=== PATIENT | female | born 1995 | race Caucasian/White ===

== ENCOUNTER 2022-03-30 17:55 | Emergency (ER) | payer MEDICAID, OTHER ==
[~2022-03-30] VITALS: Ht 160 cm; Wt 80.0 kg
[2022-03-30 18:00] VITALS: BP 104/70
[2022-03-30] MEDS ORDERED: IBUP-1986 PO (19:05)
[2022-03-30] MEDS ORDERED: orphenadrine citrate 60mg/2ml inj. IM ONE (19:05)
[2022-03-30] MEDS ORDERED: ketorolac tromethamine 15mg/ml inj. IM ONE (19:05)
[2022-03-30] MEDS ORDERED: CYCL-1 PO (19:05)
== END 2022-03-30 19:27 | disposition home or self-care (01) ==
LOC: ER 17:58
DX: S39.012A Strain of muscle, fascia and tendon of lower back, initial encounter (principal); F12.90 Cannabis use, unspecified, uncomplicated; Z72.89 Other problems related to lifestyle; Z79.899 Other long term (current) drug therapy; X58.XXXA Exposure to other specified factors, initial encounter; Y93.89 Activity, other specified; Y92.89 Other specified places as the place of occurrence of the external cause; Y99.8 Other external cause status
CPT/HCPCS: 96372; 99284; J1885; J2360

== ENCOUNTER 2023-11-05 22:23 | Emergency (ER) | payer MEDICAID ==
[~2023-11-05] VITALS: Ht 160 cm; Wt 83.6 kg
[~2023-11-05 22:23] MED LIST: CYCL-1 PO; IBUP-1986 PO
[2023-11-05] MEDS ORDERED: normal saline 1000ml 1,000 ML IV ONE (23:05)
[2023-11-05 23:49] LABS: BASOPHILS % (AUTO) 0.5 % (0-1); EOSINOPHILS # (AUTO) 0.2 X10'3 (0-0.9); EOSINOPHILS % (AUTO) 2.9 % (0-6); HEMOGLOBIN 13.4 g/dl (12.0-16.0); LYMPHOCYTES # (AUTO) 1.6 X10'3 (1.1-4.8); LYMPHOCYTES % (AUTO) 30.7 % (21-51); MEAN CORPUSCULAR HEMOGLOBIN 30.3 PG (27.0-31.0); MEAN CORPUSCULAR HGB CONC 34.4 g/dL (33.0-36.5); MEAN CORPUSCULAR VOLUME 88.1 FL (78-98); MEAN PLATELET VOLUME 7.7 FL (7.4-10.4); MONOCYTES # (AUTO) 0.4 X10'3 (0-0.9); MONOCYTES % (AUTO) 6.8 % (2-12); NEUTROPHILS # (AUTO) 3.2 X10'3 (1.8-7.7); NEUTROPHILS % (AUTO) 59.1 % (42-75); PLATELET COUNT 256 X10'3 (140-440); RED BLOOD COUNT 4.43 X10'6 (4.20-5.60); RED CELL DISTRIBUTION WIDTH 12.9 % (11.5-14.5); WHITE BLOOD COUNT 5.4 X10'3 (4.5-11.0)
[2023-11-05 23:57] LABS: D-DIMER 0.36 MG/L FEU (0-0.50); PROTHROMBIN TIME 10.6 SECONDS (9.0-12.0)
[2023-11-06 00:06] LABS: ALANINE AMINOTRANSFERASE 15 U/L (12-78); ALBUMIN 3.7 G/DL (3.4-5.0); ALKALINE PHOSPHATASE 78 IU/L (46-116); ANION GAP 5 (8-16); ASPARTATE AMINO TRANSFERASE 16 U/L (10-37); BILIRUBIN,TOTAL 0.4 MG/DL (0.1-1.0); BLOOD UREA NITROGEN 16 MG/DL (7-18); BUN/CREATININE RATIO 18.4 (10.0-20.0); CALCIUM 8.8 MG/DL (8.5-10.1); CHLORIDE 104 MMOL/L (99-107); CREATININE 0.87 MG/DL (0.40-0.90); GLUCOSE 130 MG/DL (70-104); MAGNESIUM 2.2 MG/DL (1.5-2.4); POTASSIUM 4.1 MMOL/L (3.5-5.1); PRO BRAIN NATRIURETIC PEPTIDE 42 PG/ML (0-125); SODIUM 138 MMOL/L (135-145); TOTAL CARBON DIOXIDE 28.8 MMOL/L (24-32); TOTAL PROTEIN 7.5 G/DL (6.4-8.2); eCRCL 78 ML/MIN; eGFR 76 ML/MIN
[2023-11-06 00:28] VITALS: BP 98/47; PULSE 75; RESP 18; TEMP 97.9; O2SAT 98
== END 2023-11-06 00:30 | disposition home or self-care (01) ==
LOC: ER 22:24
DX: B34.9 Viral infection, unspecified (principal); R19.7 Diarrhea, unspecified; F12.90 Cannabis use, unspecified, uncomplicated; E86.0 Dehydration
CPT/HCPCS: 36415; 71045; 80053; 83735; 83880; 84484; 85025; 85379; 85610; 93005; 96360; 99285; J7030

== ENCOUNTER 2023-12-30 22:51 | Emergency (ER) | payer MEDICAID ==
[~2023-12-30] VITALS: Ht 160 cm; Wt 82.9 kg
[2023-12-30 23:14] LABS: BASOPHILS % (AUTO) 0.3 % (0-1); EOSINOPHILS # (AUTO) 0.2 X10'3 (0-0.9); EOSINOPHILS % (AUTO) 2.9 % (0-6); HEMOGLOBIN 13.4 g/dl (12.0-16.0); LYMPHOCYTES # (AUTO) 2.5 X10'3 (1.1-4.8); LYMPHOCYTES % (AUTO) 35.7 % (21-51); MEAN CORPUSCULAR HEMOGLOBIN 29.9 PG (27.0-31.0); MEAN CORPUSCULAR HGB CONC 34.4 g/dL (33.0-36.5); MEAN CORPUSCULAR VOLUME 87.1 FL (78-98); MONOCYTES # (AUTO) 0.4 X10'3 (0-0.9); MONOCYTES % (AUTO) 5.3 % (2-12); NEUTROPHILS # (AUTO) 3.9 X10'3 (1.8-7.7); NEUTROPHILS % (AUTO) 55.8 % (42-75); PLATELET COUNT 230 X10'3 (140-440); RED BLOOD COUNT 4.48 X10'6 (4.20-5.60); RED CELL DISTRIBUTION WIDTH 13.1 % (11.5-14.5)
[2023-12-30 23:26] LABS: ANION GAP 9 (8-16); BLOOD UREA NITROGEN 12 MG/DL (7-18); BUN/CREATININE RATIO 15.8 (10.0-20.0); CALCIUM 8.8 MG/DL (8.5-10.1); CHLORIDE 106 MMOL/L (99-107); CREATININE 0.76 MG/DL (0.40-0.90); GLUCOSE 92 MG/DL (70-104); POTASSIUM 4.1 MMOL/L (3.5-5.1); PRO BRAIN NATRIURETIC PEPTIDE 44 PG/ML (0-125); SODIUM 142 MMOL/L (135-145); TOTAL CARBON DIOXIDE 27.2 MMOL/L (24-32); eCRCL 90 ML/MIN; eGFR 89 ML/MIN
[2023-12-31 00:28] LABS: URINE HCG NEGATIVE (NEG)
[2023-12-31] MEDS ORDERED: iohexol 350MG/ML 100ml bottle IV ONE (00:44)
[2023-12-31 04:59] VITALS: BP 112/71; PULSE 77; RESP 16; TEMP 98.2; O2SAT 97
== END 2023-12-31 05:06 | disposition home or self-care (01) ==
LOC: ER 22:52
DX: R07.9 Chest pain, unspecified (principal); R06.02 Shortness of breath; Z79.899 Other long term (current) drug therapy
CPT/HCPCS: 36415; 71045; 71275; 80048; 81025; 83880; 84484; 85025; 93005; 99285; J3490; Q9967

== ENCOUNTER 2024-03-22 14:52 | Outpatient (CLI) | payer MEDICAID ==
[~2024-03-22] VITALS: Ht 160 cm; Wt 74.8 kg
[2024-03-22] MEDS: albuterol 2.5 MG/3 ML nebule NEB ONE (15:26)
[2024-03-22 15:27] VITALS: PULSE 77; RESP 15; O2SAT 99
== END 2024-03-22 23:59 | disposition home or self-care (01) ==
LOC: RT 14:52
PROVIDERS: ATTEND Student in an Organized Health Care Education/Training Program
DX: R06.02 Shortness of breath (principal)
CPT/HCPCS: 94060; 94760

== ENCOUNTER 2024-09-27 15:49 | Outpatient (CLI) | payer MEDICAID | END 2024-09-27 23:59 | disposition home or self-care (01) | LOC: RAD 15:49 | PROVIDERS: ATTEND Family Medicine | DX: D25.9 Leiomyoma of uterus, unspecified (principal); N83.02 Follicular cyst of left ovary; R10.2 Pelvic and perineal pain | CPT/HCPCS: 76830; 76856; 93976 ==

== ENCOUNTER 2024-12-26 14:07 | Emergency (ER) | payer MEDICAID ==
[~2024-12-26] VITALS: Ht 160 cm; Wt 74.8 kg
[2024-12-26 15:01] LABS: BASOPHILS % (AUTO) 0.5 % (0-1); EOSINOPHILS # (AUTO) 0.2 X10'3 (0-0.9); EOSINOPHILS % (AUTO) 2.9 % (0-6); HEMATOCRIT 41.3 % (35.0-45.0); HEMOGLOBIN 14.1 g/dl (12.0-16.0); LYMPHOCYTES # (AUTO) 1.8 X10'3 (1.1-4.8); LYMPHOCYTES % (AUTO) 27.9 % (21-51); MEAN CORPUSCULAR HEMOGLOBIN 30.3 PG (27.0-31.0); MEAN CORPUSCULAR HGB CONC 34.1 g/dL (33.0-36.5); MEAN CORPUSCULAR VOLUME 88.8 FL (78-98); MEAN PLATELET VOLUME 8.1 FL (7.4-10.4); MONOCYTES # (AUTO) 0.4 X10'3 (0-0.9); MONOCYTES % (AUTO) 5.9 % (2-12); NEUTROPHILS # (AUTO) 4.1 X10'3 (1.8-7.7); NEUTROPHILS % (AUTO) 62.8 % (42-75); PLATELET COUNT 243 X10'3 (140-440); RED BLOOD COUNT 4.65 X10'6 (4.20-5.60); RED CELL DISTRIBUTION WIDTH 13.4 % (11.5-14.5); WHITE BLOOD COUNT 6.6 X10'3 (4.5-11.0)
[2024-12-26 15:15] LABS: ALANINE AMINOTRANSFERASE 18 U/L (12-78); ALBUMIN 4.2 G/DL (3.4-5.0); ALBUMIN/GLOBULIN RATIO 1.3 (1.1-1.5); ALKALINE PHOSPHATASE 62 IU/L (46-116); ANION GAP 9 (8-16); ASPARTATE AMINO TRANSFERASE 8 U/L (10-37); BILIRUBIN,TOTAL 0.4 MG/DL (0.1-1.0); BLOOD UREA NITROGEN 14 MG/DL (7-18); BUN/CREATININE RATIO 19.7 (10.0-20.0); CALCIUM 8.9 MG/DL (8.5-10.1); CHLORIDE 105 MMOL/L (99-107); CREATININE 0.71 MG/DL (0.40-0.90); GLUCOSE 85 MG/DL (70-104); POTASSIUM 3.8 MMOL/L (3.5-5.1); SODIUM 142 MMOL/L (135-145); TOTAL CARBON DIOXIDE 27.9 MMOL/L (24-32); TOTAL PROTEIN 7.5 G/DL (6.4-8.2); eCRCL 95 ML/MIN; eGFR > 90 ML/MIN
[2024-12-26 15:24] LABS: PRO BRAIN NATRIURETIC PEPTIDE < 30 PG/ML (0-125)
[2024-12-26 17:28] VITALS: BP 112/65; PULSE 67; RESP 16; TEMP 98.2; O2SAT 99
== END 2024-12-26 17:29 | disposition home or self-care (01) ==
LOC: ER 14:08
DX: R42 Dizziness and giddiness (principal); F12.90 Cannabis use, unspecified, uncomplicated; Z79.1 Long term (current) use of non-steroidal anti-inflammatories (NSAID); Z79.899 Other long term (current) drug therapy
CPT/HCPCS: 36415; 71045; 80053; 83880; 84484; 85025; 93005; 99285

== ENCOUNTER 2025-05-25 22:42 | Emergency (ER) | payer MEDICAID ==
[~2025-05-25] VITALS: Ht 160 cm; Wt 76.8 kg
--- NOTE | 2025-05-25 22:52 | ELECTROCARDIOGRAPH REPORT ---
[facility] Test Date: 2025-05-25 Test Time: 22:49:55 Pat Name: FLOR BOWMAN Department: EMERGENCY ROOM Room: Gender: F [employer] Tender: : 1995 Requested By: OSWALD KEVIN Order Number: [id number] Reading MD: Dr. Oswald Kevin Measurements Intervals [place] Rate: 66 P: 74 NM: 158 QRS: 80 QRSD: 88 T: 47 QT: 402 QTc: 422 Interpretive Statements Sinus rhythm Baseline wander in lead(s) I,III,aVL Electronically Signed On 05-25-2025 23:54:[address] Oswald Kevin Please click the below link to view image of tracing.
[2025-05-25 23:17] LABS: MEAN PLATELET VOLUME 7.9 FL (7.4-10.4); RED CELL DISTRIBUTION WIDTH 13.5 % (11.5-14.5)
--- NOTE | 2025-05-25 23:27 | RADIOLOGY REPORT ---
CHEST RADIOGRAPH Indication: CP Technique: 1 view Comparison: DI CHEST,SINGLE VIEW on DOS: 12/26/24, CT CTA CHEST PE on DOS: 12/31/23, DI CHEST,SINGLE VIE W on DOS: 12/30/23, DI CHEST,SINGLE VIEW on DOS: 11/05/23, CHEST,SINGLE VIEW on DOS: 05/12/22 FINDINGS: Lines and Tubes: None Lungs: No focal consolidation. Pleura: No effusion or pneumothorax. Cardiomediastinal contours: Unremarkable. Bones: No acute osseous abnormality. IMPRESSION: 1. No acute cardiopulmonary abnormality or significant change from prior exam.
[2025-05-25 23:38] LABS: CREATININE 0.82 MG/DL (0.40-0.90); PRO BRAIN NATRIURETIC PEPTIDE 64 PG/ML (0-125); TOTAL CARBON DIOXIDE 26.7 MMOL/L (24-32); eCRCL 82 ML/MIN; eGFR 81 ML/MIN
--- NOTE | 2025-05-26 03:23 | Physician Documentation ---
History of Present Illness ~ Chief Complaint: Shortness of Breath Stated Complaint: BACK PAIN,SHORT OF BREATH Time Seen by MD: 03:19 OK to notify your PCP?: Yes Primary Medical Doctor: [facility] Source: patient, RN/, RN notes reviewed, old records Mode of Arrival: POV Exam Limitations: no limitations HPI BED 08 This patient is a 29 y/o female who presents to ED with chief complaint of shortness of breath and back pain. Patient notes that in June of 2023 she developed a pulmonary embolism after giving to her child. Patient states that at that time she was having shortness of breath and dizziness. She states she was on Lovenox injections for four months afterward, but is not taking any blood thinners now. Patient reports that tonight she has been having shortness of breath, back pain, and rapid heart rate. She is not taking daily aspirin. Patient does continue to smoke. She is not on blood thinners. She has not noticed any swelling in her legs. Patient denies any other associated symptoms at this time. Patient denies any other alleviating or exacerbating factors. Medication Reconciliation Allergies: Coded Allergies: No Known Allergies (Unverified , 12/30/23) Scheduled Cyclobenzaprine* (Cyclobenzaprine*), 1 TAB PO Q8H Ibuprofen (Ibuprofen), 1 TAB PO Q8H Past Medical History Past Medical History: *PULMONARY*, Pulmonary Embolism Past Surgical History: no surgical history Smoking Status: Current every day smoker Alcohol Use: Other Drug Use: marijuana Occupation: employed Review of Systems All Other Systems at this time: Reviewed and Negative Physical Exam Vital Signs: RN Vital Signs have been reviewed: Yes, Temperature: 97.8, Source: Temporal, Heart Rate: 70, Respiratory Rate: 16, BP: 114/69, Pulse Oximetry: 99, Weight: 76.800 Oxygen Flow Rate: 0 Physical Exam General: The patient is well developed, well nourished, nontoxic appearing and is in no acute distress. Skin: [place], warm and dry with no rashes. HEENT: Head was normocephalic and atraumatic. Eyes - pupils equal, round, reactive to light and accommodation. Extraocular movements were intact. Conjunctivae were nonicteric. The mouth and oropharynx were clear with moist mucous membranes. There were no pharyngeal exudates or erythema. Neck: Supple and nontender. There was no jugular venous distention, lymphadenopathy, thyromegaly or masses. Chest: Clear to auscultation bilaterally without wheezes, rales or rhonchi. No accessory muscle use. No dullness to percussion. Heart: 2/6 systolic injection murmur. Rate regular and rhythmic. S1, S2. Palpation of the chest wall was normal. No rubs or thrills. Abdomen: Soft, nontender and nondistended. Positive bowel sounds. No guarding or rebound. No hepatosplenomegaly or palpable masses. Extremities: No cyanosis, clubbing or edema. The patient moves all extremities. Pulses were equal and symmetric. Neurologic: Motor and sensation grossly intact. A & O x4. Psychologic: The patient was oriented to person, place and time. Progress Results/Orders Results/Orders Orders - GRZEGORZ HOLLOWAY MD Chest,Single View (05/25/25 22:51) Monitor (05/25/25 22:51) Saline Lock (05/25/25 22:51) Oxygen (05/25/25 22:51) Electrocardiogram (05/25/25 22:51) Completed Orders - GRZEGORZ HOLLOWAY MD Chest,Single View (05/25/25 22:51) Cbc/Diff (05/25/25 22:51) BMP (05/25/25 22:51) PBNP (05/25/25 22:51) Electrocardiogram (05/25/25 22:51) Hs Troponin I W Calculations (05/25/25 22:51) Hs Troponin I W Calculations (05/26/25 00:51) Hs Troponin I W Calculations (05/26/25 01:51) D-Dimer (05/26/25 03:38) PTT (05/26/25 03:38) Pt Inr (05/26/25 03:38) Aspirin 81mg Chew Tablet (Aspirin 81mg C (05/26/25 03:40) Enoxaparin Syringe (Lovenox Syringe) (05/26/25 03:40) Medications Received in ER Medications (Trade) Dose Ordered Sig/Amelia Route PRN Reason Start Time Stop Time Status Last Admin Dose Admin (aspirin 81MG chew tablet) 324 mg ONCE ONCE PO 05/26/25 03:40 05/26/25 03:41 DC 05/26/25 03:46 324 MG (Lovenox syringe) 100 mg ONCE ONCE SUBCUT 05/26/25 03:40 05/26/25 03:41 DC 05/26/25 03:47 100 MG Vital Signs 05/25/25 05/25/25 05/25/25 05/26/25 22:49 23:12 23:17 00:57 Temp 97.8 Pulse 68 64 70 Resp 15 16 18 16 B/P (MAP) 119/66 106/66 (79) 114/57 (76) Pulse Ox 99 97 97 O2 Flow Rate 0 0 05/26/25 05/26/25 03:09 03:51 Temp 98.3 Pulse 70 76 Resp 16 16 B/P (MAP) 114/69 (84) 124/83 Pulse Ox 99 98 O2 Flow Rate 0 Laboratory Tests Test 05/25/25 23:10 05/26/25 00:00 05/26/25 00:57 05/26/25 02:00 White Blood Count 5.7 Red Blood Count 4.16 L Hemoglobin 12.3 Hematocrit 36.1 Mean Corpuscular Volume 86.8 Mean Corpuscular Hemoglobin 29.5 Mean Corpuscular Hemoglobin Concent 33.9 Red Cell Distribution Width 13.5 Platelet Count 240 Mean Platelet Volume 7.9 Neutrophils (%) (Auto) 52.9 Lymphocytes (%) (Auto) 37.3 Monocytes (%) (Auto) 5.9 Eosinophils (%) (Auto) 3.2 Basophils (%) (Auto) 0.7 Neutrophils # (Auto) 3.0 Lymphocytes # (Auto) 2.1 Monocytes # (Auto) 0.3 Eosinophils # (Auto) 0.2 Basophils # (Auto) 0.0 CBC Comment Sodium Level 140 Potassium Level 3.8 Chloride Level 106 Carbon Dioxide Level 26.7 Anion Gap 7 L Blood Urea Nitrogen 13 Creatinine 0.82 Estimated GFR/1.73 m2 81 BUN/Creatinine Ratio 15.9 Glucose Level 87 Calcium Level 8.4 L Troponin I High Sensitivity 4 5 5 Pro-B-Type Natriuretic Peptide 64 Albumin 3.9 Chemistry Comments Prothrombin Time 10.7 INR International Normalized Ratio 1.0 Activated Partial Thromboplast Time 29 D-Dimer < 0.19 D-Dimer Comment Coagulation Comments Troponin I High Sens Percent Delta 25 0 Troponin I Hi Sens Absolute Change 1 0 Re-Evaluation Re-evaluation : Re-Evaluation: Improved Progress Patient was seen and examined. Patient is given reassurance. Patient's laboratory work was obtained. CBC is reassuring without leukocytosis anemia or any other abnormalities no signs of infection. Patient's D-dimer is negative. Chemistry within normal limits three troponins are negative. Patient has a high-risk for pulmonary embolism. Patient has a history of DVTs she has been having some shortness of breath. When she stands up her heart rate goes from 80-100. Patient received aspirin and Lovenox 100 mg which is just under 1.5 milligrams/kilogram. Patient was told to return for a CT angiogram. Patient's EKG had some nonspecific changes and T3 but did not show specific heart strain. Continuous desk monitor interpretation shows normal sinus rhythm heart rate 60s, no ectopy, normal my interpretation however when patient stands there was a transient tachycardia in the 100s, abnormal, my interpretation. Pulse oximetry monitor interpretation shows normal oxygenation at 98% room air, normal, my interpretation. EKG/XRAY/CT/US/VASC/MRI EKG : Intepreting Monitor?: Yes Additional Comment [address] [address] ELECTROCARDIOGRAM Patient: FLOR BOWMAN Medical Record: [id number] [facility] 1995, Age: 29Sex: F Location: ER Patient Status: REG ER Service Date/Time: Ordering Physician: GRZEGORZ HOLLOWAY MD Exam Name: ELECTROCARDIOGRAM Technologist: [facility] Test Date: 2025-05-25 Test Time: 22:49:55 Pat Name: FLOR BOWMAN Department: EMERGENCY ROOM Room: Gender: F Anesthesia Director: : 1995 Requested By: GRZEGORZ HOLLOWAY Order Number: [id number] Reading MD: Dr. Grzegorz Holloway Measurements Intervals [place] Rate: 66 P: 74 [place]: 158 QRS: 80 QRSD: 88 T: 47 QT: 402 QTc: 422 Interpretive Statements Sinus rhythm Baseline wander in lead(s) I,III,aVL Electronically Signed On 05-25-2025 23:54:[address] Grzegorz oHlloway Please click the below link to view image of tracing. EKG Date and Time:05/25/252248 Electronically Signed by: GRZEGORZ HOLLOWAY MD Date and Time: 05/25/25 235 NO PRIMARY CARE PROVIDER~ cc: ~ Chest X-Ray : Interpreted By: both Additional Comments [address] [address] DIAGNOSTIC RADIOLOGY Patient: FLOR BOWMAN Medical Record: [id number] [facility] 1995, Age: 29 Sex: Female Location: ER Patient Status: [facility] ER Service Date/Time: 05/25/252250 Ordering Physician: GRZEGORZ HOLLOWAY MD Exam: CHEST,SINGLE VIEW CHEST RADIOGRAPH Indication: CP Technique: 1 view Comparison: DI CHEST,SINGLE VIEW on DOS: 12/26/24, CT CTA CHEST PE on DOS: 12/31/23, DI CHEST,SINGLE VIEW on DOS: 12/30/23, DI CHEST,SINGLE VIEW on DOS: 11/05/23, CHEST,SINGLE VIEW on DOS: 05/12/22 FINDINGS: Lines and Tubes: None Lungs: No focal consolidation. Pleura: No effusion or pneumothorax. Cardiomediastinal contours: Unremarkable. Bones: No acute osseous abnormality. IMPRESSION: 1. No acute cardiopulmonary abnormality or significant change from prior exam. Electronically Signed by:BHAVESH IBANEZ MD Date & Time: 05/25/252323 Dictated by: BHAVESH IBANEZ MD Dictation date and time: 05/25/252323 Primary Care Provider: NO PRIMARY CARE PROVIDER cc: GRZEGORZ HOLLOWAY MD ~ IMAGES REVIEWED BY EDMD DR. HOLLOWAY WHO AGREES WITH ABOVE FINDINGS Medical Decision Making Additional info obtained from: old records Differential Dx:Considerations: Include: anxiety, asthma, bronchitis, CHF, COPD, dysrhythmia, hypertension, accelerated, hyponatremia, myocardial infarction, panic attack, pneumonia, pneumonitis, pulmonary embolism, respiratory distress, respiratory failure, sinusitis, upper resp. infection, other Departure Time of Disposition: 03:36 Disposition: 01 HOME / SELF CARE / HOMELESS Impression: Primary Impression: Dyspnea Qualified Codes: R06.09 - Other forms of dyspnea Condition: Stable Discharge Instructions: Managing the Challenge of Quitting Smoking, Pulmonary Embolism Additional Instructions: Take aspirin daily. Return to ER tomorrow for CT angiogram in order to rule out pulmonary embolism. Referrals: NO PRIMARY CARE PROVIDER (PCP) Education Educated: Patient Educated regarding: diagnosis, treatment, need for follow up Signature Scribe Signature: Scribed for Grzegorz Holloway MD by Nelia Jarquin 05/26/25 03:35 Attestation: The note accurately reflects work and decisions made by me.Grzegorz Holloway MD 05/26/25 03:23 GRZEGORZ HOLLOWAY MD May 26, 2025 03:23
[2025-05-26] MEDS: enoxaparin 100mg/ml syringe SUBCUT ONE (03:47)
[2025-05-26 03:51] VITALS: BP 124/83; PULSE 76; RESP 16; TEMP 98.3; O2SAT 98
[2025-05-26 03:59] LABS: APTT 29 SECONDS (22-32); INR 1.0 INR
[2025-05-26] MEDS ORDERED: METR-159 PO (17:40)
== END 2025-05-26 03:53 | disposition home or self-care (01) ==
LOC: ER 22:42
DX: R06.00 Dyspnea, unspecified (principal); R06.02 Shortness of breath; R00.0 Tachycardia, unspecified; R42 Dizziness and giddiness; M54.9 Dorsalgia, unspecified; F12.90 Cannabis use, unspecified, uncomplicated; F17.200 Nicotine dependence, unspecified, uncomplicated; Z86.711 Personal history of pulmonary embolism
CPT/HCPCS: 36415; 71045; 80048; 83880; 84484; 85025; 85379; 85610; 85730; 93005; 96372; 99285; J1650

== ENCOUNTER 2025-05-26 13:40 | Emergency (ER) | payer MEDICAID ==
[~2025-05-26] VITALS: Ht 160 cm; Wt 76.4 kg
[2025-05-26 13:47] VITALS: BP 109/67; PULSE 70; RESP 18; O2SAT 99
--- NOTE | 2025-05-26 15:35 | Physician Documentation ---
History of Present Illness ~ Chief Complaint: Shortness of Breath Stated Complaint: "NEEDS CT ANGIO PER DR" Time Seen by MD: 14:16 Primary Medical Doctor: [facility] Medication Reconciliation Allergies: Coded Allergies: No Known Allergies (Unverified , 05/26/25) Scheduled Cyclobenzaprine* (Cyclobenzaprine*), 1 TAB PO Q8H Ibuprofen (Ibuprofen), 1 TAB PO Q8H Past Medical History Past Medical History: *PULMONARY*, Pulmonary Embolism Past Surgical History: no surgical history Alcohol Use: Other Drug Use: marijuana Occupation: employed Physical Exam Vital Signs: Temperature: 98.2, Source: Oral, Heart Rate: 70, Respiratory Rate: 18, BP: 109/67, Pulse Oximetry: 99, Weight: 76.360 Oxygen Flow Rate: 0 Progress Results/Orders Results/Orders Orders - ANNA [facility] [employer] Cta Chest Pe (05/26/25 17:22) Completed Orders - ANNA [employer] [employer] Cta Chest Pe (05/26/25 17:22) Hcg, Ur Ql (05/26/25 15:51) Iohexol 350mg/Ml 100ml (Omnipaque 350mg/ (05/26/25 17:08) Vital Signs 05/26/25 13:47 Temp 98.2 Pulse 70 Resp 18 B/P (MAP) 109/67 Pulse Ox 99 O2 Flow Rate 0 Laboratory Tests Test 05/26/25 16:37 Urine HCG, Qualitative Negative Medical Decision Making Findings IMPRESSION: 1. No pulmonary embolism. 2. Calcified granuloma in the right lung. Departure Disposition: HOME / SELF CARE / HOMELESS Impression: Primary Impression: Shortness of breath Additional Impression: Respiratory distress Condition: Stable Discharge Instructions: Shortness of Breath, Adult, Ayrc-si-Whtn Additional Instructions: You were seen for concern for shortness of breath. Labs radiologic diagnostics to our reassuring at this time. No concerning findings were noted on CTA x-ray or laboratory diagnostics. Follow up with her primary care provider. Return to the emergency department if you have any worsening or additional concerning symptoms present. Referrals: NO PRIMARY CARE PROVIDER (PCP) Education Educated: Patient Educated regarding: treatment, need for follow up [facility] [employer] May 26, 2025 15:35
[2025-05-26 17:02] LABS: URINE HCG NEGATIVE (NEG)
[2025-05-26] MEDS ORDERED: METR-159 PO (17:40)
--- NOTE | 2025-05-26 17:44 | RADIOLOGY REPORT ---
CTA Chest with intravenous contrast INDICATION: Hx PE, SOB COMPARISON: DI CHEST,SINGLE VIEW on DOS: 05/25/25, DI CHEST,SINGLE VIEW on DOS: 12/26/24, CT CTA CHEST PE on DOS: 12/31/23 TECHNIQUE: Multidetector spiral CTA of the chest was performed of the chest with intravenous contrast . PULMONARY ANGIOGRAPHY PROTOCOL was utilized using a bolus-tracking technique centered on the main p ulmonary artery. Axial, coronal and sagittal multiplanar and MIP reformats were performed. CONTRAST: Type of contrast: Omni 350 Contrast injected: 100 ml Radiation dose : Chest: CTDI volume is 11 mGy. Dose-length product is 432 mGy*cm The dose indicators for CT are the volume computed Tomography (CT) dose Index (CTDIvol) and the dose Length product (DLP), and are measured in units of mGy and mGy-cm, respectively. These indicators are not patient dose, but values generated from the CT scanner acquisition factors. The report includes radiation exposure data for exposures received during this examination. Findings: Pulmonary artery: No pulmonary embolism Lower neck: Normal thyroid. Lungs: No focal consolidation, pleural effusion or pneumothorax. Calcified granuloma in the right kaila g. Mild atelectasis in the lung bases. Heart/Vascular Structures: Normal heart size. No pericardial effusion. Lymph Nodes: Subcentimeter mediastinal lymph nodes. Pleura: No pleural effusion or significant pneumothorax. Musculoskeletal: No acute osseous abnormality. Soft tissues: Normal. Upper abdomen: Limited portions of the upper abdomen are unremarkable. IMPRESSION: 1. No pulmonary embolism. 2. Calcified granuloma in the right lung. HS:Y
[2025-05-26 18:22] VITALS: TEMP 98.2
== END 2025-05-26 18:23 | disposition home or self-care (01) ==
LOC: ER 13:41
DX: R06.03 Acute respiratory distress (principal); F12.90 Cannabis use, unspecified, uncomplicated; Z86.711 Personal history of pulmonary embolism; Z79.899 Other long term (current) drug therapy
CPT/HCPCS: 71275; 81025; 99285; Q9967